=== PATIENT | female | born 1975 | race Caucasian/White ===

== ENCOUNTER 2017-04-21 14:35 | Emergency (ER) | payer MEDICAID ==
[~2017-04-21] VITALS: Ht 152.4 cm; Wt 113.0 kg
[2017-04-21 15:42] LABS: ASPARTATE AMINO TRANSFERASE 15 U/L (15-37); BLOOD UREA NITROGEN 8 mg/dL (7-18)
[2017-04-21 16:36] VITALS: BP 117/70
[2017-04-21] MEDS ORDERED: ONDANSETRON ODT 4 MG ONE (16:43)
[2017-04-21] MEDS ORDERED: ONDANSETRON ODT 4 MG PO ONE (17:00)
== END 2017-04-21 17:04 | disposition home or self-care (01) ==
LOC: ED 16:33
DX: R10.2 Pelvic and perineal pain (principal); R11.2 Nausea with vomiting, unspecified; Z90.710 Acquired absence of both cervix and uterus; Z90.721 Acquired absence of ovaries, unilateral
CPT/HCPCS: 36415; 76830; 80053; 81003; 85025; 99285; Q0162